=== PATIENT | female | born 1960 | race African-American/Black ===

== ENCOUNTER 2020-05-20 13:35 | Inpatient (IN) | payer MEDICARE, MEDICAID ==
[~2020-05-20] VITALS: Ht 152.4 cm; Wt 39.3 kg
[2020-05-20 14:43] LABS: EOSINOPHILS % 10.5 % (0.0-5.0); HEMATOCRIT. 38.4 % (36.0-48.0); HEMOGLOBIN. 12.3 g/dL (12.0-16.0); LYMPHOCYTES % 27.2 % (20.0-50.0); MEAN CORPUSCULAR HEMOGLOBIN 28.3 pg (28.0-32.0); MEAN CORPUSCULAR VOLUME 88.3 fL (81.0-99.0); MEAN PLATELET VOLUME 8.9 fl (7.4-10.4); MONOCYTES % 7.6 % (2.0-8.0); NEUTROPHILS % 53.7 % (40.0-76.0); PLATELET 236 x1000/uL (130-400); RED BLOOD CELL COUNT 4.35 mill/uL (4.2-5.4); RED CELL DISTRIBUTION WIDTH 15.4 % (11.6-14.6)
[2020-05-20 15:03] LABS: CHLORIDE 108 mEq/L (98-107)
[2020-05-20 19:22] LABS: CLARITY URINE CLEAR (CLEAR); COLOR URINE YELLOW (YELLOW); KETONES URINE NEGATIVE (NEGATIVE); LEUKOCYTE ESTERASE URINE NEGATIVE (NEGATIVE); NITRITE URINE NEGATIVE (NEGATIVE); OCCULT BLOOD URINE NEGATIVE (NEGATIVE); PROTEIN URINE NEGATIVE (NEGATIVE); SPECIFIC GRAVITY URINE 1.013 (1.005-1.030); UROBILINOGEN URINE 0.2 E.U./dL (0.2-1.0)
[2020-05-20] MEDS ORDERED: GUAIFENESIN 200MG/10ML SUGAR FREE UDC PO PRN (20:00)
[2020-05-20] MEDS ORDERED: MAGNESIUM/ALUMINUM HYDROXIDE/SIMETHICONE 30ML UDC PO PRN (20:00)
[2020-05-20] MEDS ORDERED: KETOROLAC 15MG/ML VIAL IV PRN (20:00)
[2020-05-20] MEDS ORDERED: ONDANSETRON HCL 4MG/2ML INJ IV PRN (20:00)
[2020-05-20] MEDS ORDERED: IPRATROPIUM/ALBUTEROL 0.5-3(2.5)MG/3ML NEB NEB PRN (20:00)
[2020-05-20] MEDS ORDERED: ACETAMINOPHEN 325MG TABLET PO PRN ×2 (20:00)
[2020-05-20] MEDS ORDERED: CLONIDINE 0.1MG TABLET PO PRN (20:00)
[2020-05-20] MEDS ORDERED: NA PHOS,M-B/NA PHOS,DI-BA ENEMA 118ML PR PRN (20:00)
[2020-05-20] MEDS ORDERED: DOCUSATE SODIUM 100MG CAPSULE PO PRN (20:00)
[2020-05-20] MEDS ORDERED: LORAZEPAM 2MG/ML CPJ IV PRN (20:00)
[2020-05-20] MEDS ORDERED: NITROGLYCERIN 0.4MG TABLET SL SL PRN (20:00)
[2020-05-20] MEDS ORDERED: ENOXAPARIN 40MG/0.4ML SYR SUBCUT SCH (20:30)
[2020-05-20 22:00] VITALS: BP 113/43
[2020-05-20] MEDS: ASCORBIC ACID 500 MG TABLET PO SCH (23:56)
[2020-05-20] MEDS: FAMOTIDINE 20MG TABLET PO SCH (23:57)
[2020-05-20] MEDS: LEVETIRACETAM 500MG TABLET PO SCH (23:57)
[2020-05-20] MEDS: ZOLPIDEM TARTRATE 5MG TABLET PO PRN (23:57)
[2020-05-21] VITALS (13 sets, daily range): BP systolic 94–148; BP diastolic 36–77
[2020-05-21 02:06] LABS: ETHANOL BLOOD < 10 mg/dL
[2020-05-21 02:09] LABS: LDL CHOLESTEROL 125 mg/dL (5-100); TOTAL IRON BINDING CAPACITY 195 ug/dL (250-450)
[2020-05-21 02:10] LABS: CREATINE KINASE 34 IU/L (26-192)
[2020-05-21 02:11] LABS: CREATINE KINASE MB FRACTION < 1.0 ng/mL (0.5-3.6); HDL CHOLESTEROL 63 mg/dL (40-59)
[2020-05-21 02:13] LABS: T4 FREE 0.83 ng/dL (0.76-1.46)
[2020-05-21 08:43] LABS: CREATINE KINASE 39 IU/L (26-192)
[2020-05-21 08:45] LABS: CREATINE KINASE MB FRACTION < 1.0 ng/mL (0.5-3.6)
[2020-05-21] MEDS: ZINC SULFATE 220 MG ( 50 ) CAPSULE PO SCH (09:58)
[2020-05-21] MEDS: FAMOTIDINE 20MG TABLET PO SCH ×2 (09:58→20:30)
[2020-05-21] MEDS: ASPIRIN 325MG EC TABLET PO SCH (09:58)
[2020-05-21] MEDS: ASCORBIC ACID 500 MG TABLET PO SCH ×2 (09:58→20:30)
[2020-05-21] MEDS: LEVETIRACETAM 500MG TABLET PO SCH ×2 (09:58→20:30)
[2020-05-21] MEDS: ENOXAPARIN 30MG/0.3ML SYR SUBCUT SCH (20:30)
[2020-05-21] MEDS: ZOLPIDEM TARTRATE 5MG TABLET PO PRN (20:30)
[2020-05-22] VITALS (12 sets, daily range): BP systolic 95–128; BP diastolic 27–70
[2020-05-22] MEDS: ZINC SULFATE 220 MG ( 50 ) CAPSULE PO SCH (09:18)
[2020-05-22] MEDS: ASCORBIC ACID 500 MG TABLET PO SCH ×2 (09:18→20:53)
[2020-05-22] MEDS: FAMOTIDINE 20MG TABLET PO SCH ×2 (09:18→20:53)
[2020-05-22] MEDS: LEVETIRACETAM 500MG TABLET PO SCH ×2 (09:18→20:53)
[2020-05-22] MEDS: ASPIRIN 325MG EC TABLET PO SCH (09:18)
[2020-05-22] MEDS: ENOXAPARIN 30MG/0.3ML SYR SUBCUT SCH (20:53)
[2020-05-23] VITALS (11 sets, daily range): BP systolic 100–124; BP diastolic 60–78
[2020-05-23] MEDS: LEVETIRACETAM 500MG TABLET PO SCH (09:03)
[2020-05-23] MEDS: ASPIRIN 325MG EC TABLET PO SCH (09:03)
[2020-05-23] MEDS: ZINC SULFATE 220 MG ( 50 ) CAPSULE PO SCH (09:03)
[2020-05-23] MEDS: FAMOTIDINE 20MG TABLET PO SCH (09:03)
[2020-05-23] MEDS: ASCORBIC ACID 500 MG TABLET PO SCH (09:04)
== END 2020-05-23 18:38 | DRG 91 ==
LOC: ER 13:35 → 3WST 19:51 → SUPCPDRO 19:55 → EDBEDREQTM 20:19 → EDBEDREQSVC 20:19 → ENRESERV 22:03
PROVIDERS: ADMIT Internal Medicine; ATTEND Internal Medicine
DX: G92 Toxic encephalopathy (principal); G82.50 Quadriplegia, unspecified; R47.01 Aphasia; L51.1 Stevens-Johnson syndrome; I10 Essential (primary) hypertension; F03.90 Unspecified dementia, unspecified severity, without behavioral disturbance, psychotic disturbance, mood disturbance, and anxiety; E61.1 Iron deficiency; E78.00 Pure hypercholesterolemia, unspecified; E78.5 Hyperlipidemia, unspecified; G40.909 Epilepsy, unspecified, not intractable, without status epilepticus; G93.89 Other specified disorders of brain; H54.61 Unqualified visual loss, right eye, normal vision left eye; R26.2 Difficulty in walking, not elsewhere classified; D72.819 Decreased white blood cell count, unspecified; H54.62 Unqualified visual loss, left eye, normal vision right eye; J45.909 Unspecified asthma, uncomplicated; R13.10 Dysphagia, unspecified; Z86.73 Personal history of transient ischemic attack (TIA), and cerebral infarction without residual deficits; Z97.0 Presence of artificial eye; Z88.0 Allergy status to penicillin; R47.1 Dysarthria and anarthria
CPT/HCPCS: 36415; 70551; 71045; 80053; 80061; 80320; 81003; 82550; 82553; 82607; 82746; 83036; 83540; 83550; 84439; 84443; 84484; 85025; 93005; 93306; 93970; 97162; 97166; 99285; J1650; J2060; G0480

== ENCOUNTER 2020-05-25 08:18 | Emergency (ER) | payer MEDICARE, MEDICAID ==
[~2020-05-25] VITALS: Ht 162.6 cm; Wt 50.0 kg
[2020-05-25 10:30] VITALS: BP 133/63
[2020-05-25 11:22] LABS: BASOPHILS % 0.3 % (0.0-2.0); EOSINOPHILS % 1.7 % (0.0-5.0); HEMATOCRIT. 36.6 % (36.0-48.0); HEMOGLOBIN. 11.9 g/dL (12.0-16.0); LYMPHOCYTES % 14.3 % (20.0-50.0); MEAN CORPUSCULAR HEMOGLOBIN 27.8 pg (28.0-32.0); MEAN CORPUSCULAR VOLUME 85.7 fL (81.0-99.0); MEAN PLATELET VOLUME 8.9 fl (7.4-10.4); MONOCYTES % 6.3 % (2.0-8.0); NEUTROPHILS % 77.4 % (40.0-76.0); PLATELET 233 x1000/uL (130-400); RED BLOOD CELL COUNT 4.27 mill/uL (4.2-5.4); RED CELL DISTRIBUTION WIDTH 14.5 % (11.6-14.6)
[2020-05-25 11:28] LABS: CHLORIDE 101 mEq/L (98-107)
== END 2020-05-25 12:53 | disposition home or self-care (01) ==
LOC: ER 08:18 → CANBEDREQ 13:26
DX: S52.592A Other fractures of lower end of left radius, initial encounter for closed fracture (principal); S52.692A Other fracture of lower end of left ulna, initial encounter for closed fracture; R56.9 Unspecified convulsions; F03.90 Unspecified dementia, unspecified severity, without behavioral disturbance, psychotic disturbance, mood disturbance, and anxiety; W06.XXXA Fall from bed, initial encounter; Y93.84 Activity, sleeping; Y92.89 Other specified places as the place of occurrence of the external cause; Z86.73 Personal history of transient ischemic attack (TIA), and cerebral infarction without residual deficits
CPT/HCPCS: 29105; 36415; 71045; 73070; 73090; 73100; 80053; 85025; 93005; 99285